=== PATIENT | male | born 1980 | race Caucasian/White ===

== ENCOUNTER → 2020-12-24 12:14 | Outpatient (CLI) | payer OTHER, SELFPAY ==
--- NOTE | 2020-12-24 12:17 | DI.ECHO.S_ITS ---
[facility] +---------+ : : [address] [place] : : : : [id number] : : : : Phone: [phone]+ Echocardiogram Report + + :Name: KATHY ROBLERO Study Date: 12/24/2020 Height: 69 in : :[facility] ReadingLocation: Weight: 207 lb : : Gender: Male BSA: 2.1 m2 : :: 1980 Age: 40 yrs BP: 127/72 mmHg: :Reason For Study: GENERAL EXAM : :Ordering Physician: EVELIN, : :KINDRA Performed By: Daniel Landry : :Referring: KINDRA WATERS : + + Interpretation Summary Borderline asymmetric left ventricular hypertrophy with ejection fraction 60- 65%. No valvular abnormality. Mildly enlarged ascending aorta. Procedure: A two-dimensional transthoracic echocardiogram with color flow and Doppler was performed. The study quality was technically adequate. There is no prior echocardiogram noted for this patient. The patient was in sinus rhythm with heart rates between 57-68 bpm during the exam. Left Ventricle: The left ventricle is normal in size. There is borderline asymmetric left ventricular hypertrophy. The ejection fraction is estimated to be 60-65%. There are no focal wall motion abnormalities. Diastolic parameters suggest probable normal left ventricular diastolic function and normal filling pressures. Right Ventricle: The right ventricle is normal in size and function. Atria: Both atria are normal in size. There is no Doppler evidence for an interatrial shunt. Mitral Valve: The mitral valve is normal in structure and function. There is no mitral regurgitation noted. Aortic Valve: The aortic valve is normal in structure and function. No aortic regurgitation is present. Tricuspid Valve: The tricuspid valve is normal in structure and function. There is trace tricuspid regurgitation. Pulmonary artery pressures cannot be estimated because of the lack of a measurable TR jet velocity but the IVC suggests a CVP of around 3 mmHg. Pulmonic Valve: The pulmonic valve is normal in structure and function. There is mild pulmonic regurgitation. Great Vessels: The aortic root is normal size. The ascending aorta is mildly enlarged. The IVC is of normal diameter and collapses greater than 50% with a sniff. This suggests a low right atrial pressure of 3 mm Hg. Pericardium/ Pleura There is no pericardial effusion. There is no pleural effusion. MMode/2D Measurements & Calculations LVIDd: 5.4 cm LVOT diam: 2.5 cm LVIDs: 3.5 cm Ao root diam: 3.5 cm FS: 34.7 % asc Aorta Diam: 3.8 cm IVSd: 1.2 cm LVPWd: 0.86 cm LV avilez. diameter/BSA (cm/m^2): 2.6 LV sys. diameter/BSA (cm/m^2): 1.7 LA A2 area: 16.7 cm2 RA long axis: 4.6 cm LA A4 area: 17.5 cm2 RA area: 14.2 cm2 LA length (vol): 4.9 cm RA vol: 37.4 ml LA vol: 50.2 ml RA : 17.9 ml/m2 LA vol index: 23.9 ml/m2 IVC diam: 2.1 cm TAPSE: 2.2 cm Doppler Measurements & Calculations Ao V2 max: 126.1 cm/sec LVOT Max Abraham: 128.4 cm/sec Ao V2 mean: 90.9 cm/sec LV V1 max P.6 mmHg Ao max P.4 mmHg LV V1 VTI: 24.0 cm Ao mean P.7 mmHg LEEANNE(I,D): 5.2 cm2 Ao V2 VTI: 23.5 cm LEEANNE(V,D): 5.2 cm2 sev ratio: 1.0 LEEANNE indexed to BSA (cm^2/m^2): 2.5 MV E max abraham: 99.1 cm/sec PA pr(Accel): 32.3 mmHg MV A max abraham: 57.0 cm/sec MV E/A: 1.7 Med Peak E' Abraham: 9.9 cm/sec E/E' med: 10.0 Lat Peak E' Abraham: 10.6 cm/sec E/E' lat: 9.3 E/e' average: 9.7 MV dec time: 0.20 sec SV(LVOT): 122.1 ml Electronically signed by: Donovan King on Reading Physician:12/24/2020 03:04 PM
== END ==
PROVIDERS: PCP Physician Assistant; Referring Provider Physician Assistant; Visit Provider Physician Assistant
DX: Z00.00 Encounter for general adult medical examination without abnormal findings (principal); I37.1 Nonrheumatic pulmonary valve insufficiency; I77.89 Other specified disorders of arteries and arterioles
CPT/HCPCS: 93306

== ENCOUNTER → 2023-06-06 08:56 | Outpatient (CLI) | payer OTHER, SELFPAY ==
[2023-06-06 10:00] LABS: HEMOLYSIS 59 (0-50)
[2023-06-06 10:05] LABS: Alanine Aminotransferase 43 IU/L (<50); Albumin 4.3 g/dL (3.5-5.0); Albumin Globulin Ratio 1.5 (1.0-2.8); Alkaline Phosphatase 57 U/L (38-126); Aspartate Aminotransferase 43 IU/L (17-59); BUN Creatinine Ratio 18.5 (6-22); Bilirubin Total 1.2 mg/dL (0.2-1.3); Blood Urea Nitrogen 15 mg/dL (9-20); Calcium 9.3 mg/dL (8.4-10.2); Carbon Dioxide 28 mmol/L (22-32); Chloride 100 mmol/L (98-107); Cholesterol 220 mg/dL (140-199); Estimated Glomerular Filt Rate > 60 mL/min (>60); Globulin 2.9 g/dL (1.7-4.1); Glucose 94 mg/dL (70-100); HDL Cholesterol 39 mg/dL (40-60); LDL Cholesterol Calculated 157 mg/dL (<100); Potassium 4.4 mmol/L (3.4-5.1); Sodium 136 mmol/L (137-145); Total Protein 7.2 g/dL (6.3-8.2); Triglycerides 119 mg/dL (35-150)
[2023-06-06 10:37] LABS: Prostate Specific Antigen Scrn 1.14 ng/mL (0.1-4.0)
[2023-06-06 10:57] LABS: High Sensitivity CRP - Cardiac > 15.0 mg/L (1.0-3.0)
[2023-06-06 10:58] LABS: C-Reactive Protein Quant 2.6 mg/dL (<1.0)
[2023-06-06 14:53] LABS: Creatinine Urine Random 106.2 mg/dL
[2023-06-06 15:09] LABS: Microalbumin Urine Random < 0.6 mg/dL (0-1.6)
== END ==
PROVIDERS: PCP Family Medicine; Referring Provider Family Medicine; Visit Provider Family Medicine
DX: I10 Essential (primary) hypertension (principal); E78.5 Hyperlipidemia, unspecified; E88.810 Metabolic syndrome; E66.9 Obesity, unspecified; Z12.5 Encounter for screening for malignant neoplasm of prostate
CPT/HCPCS: 36415; 80053; 80061; 82043; 82570; 83525; 86140; G0103

== ENCOUNTER 2023-09-04 07:31 | Day surgery (SDC) | payer OTHER, SELFPAY ==
[2023-09-04] VITALS (7 sets, daily range): BP systolic 85–119; BP diastolic 45–76; PULSE 54–69; RESP 11–20; TEMP 35.8–36.2; O2SAT 94–98
--- NOTE | 2023-09-04 | PATH_ITS ---
[facility] Accession Number: [id number] No. of containers..02 Tissue . 01 Material submitted: . PART A: colon - DESCENIDNG POLYP PART B: colon - RECTAL POLYP . 01 Diagnosis: A. DESCENDING COLON POLYP, BIOPSY: Colonic mucosa with benign lymphoid aggregate. No dysplasia or neoplasia identified. . B. RECTAL POLYP, BIOPSY: Tubular adenoma. [facility] 09/08/2023 1305 Local . 01 Electronically signed: . Rosa M Amos MD, Pathologist NPI- [id number] . 01 Gross description: . Part A: DESCENIDNG POLYP: Received in formalin is 1 fragment(s) of lewis, soft tissue measuring 0.2 x 0.2 x 0.1 cm submitted entirely in 1 cassette(s) Part B: RECTAL POLYP: Received in formalin is 2 fragment(s) of lewis, soft tissue measuring 0.2 x 0.1 x 0.1 cm to 0.1 x 0.1 x 0.1 cm submitted entirely in 1 cassette(s) /[facility] 09/06/2023 0010 Local . 01 Pathologist provided ICD-10: D12.8, K63.89 . 01 CPT . 204357, 175697 Specimen Comment: A courtesy copy of this report has been sent to [phone] Performed at: 01 [facility] [address] [place] [address], [place], [place] [id number] MD Steven Isaac MD Phone: [phone]
--- NOTE | 2023-09-04 08:25 | P.HP_ITS ---
History of Present Illness History of Present Illness Date Patient Seen: 09/04/23 Time Patient Seen: 08:25 Chief complaint: Screening Colonoscopy Narrative: Colonoscopy will be his 1st. Here for colon cancer screening. No symptoms or family history of concern [facility] Medical History Fracture Chicken pox (~1982) Right bundle branch block (~2018) Surgical History Anesthesia History of surgery (~1996) Family History Mother Hypertension Hyperlipidemia Sister Cancer Grandfather Diabetes mellitus Grandmother History of heart disease Grandfather Cancer History of heart disease Grandmother History of heart disease Social History Smoking Status: Never smoker alcohol intake: current Meds Home Medications and Allergies Home Medications Medication Instructions Recorded Confirmed Type lisinopril 20 mg tablet 20 mg PO DAILY #90 tabs 04/29/23 09/04/23 Rx sodium sul 1.479 gram-potas ch See Rx Instructions PO PER PKG DIR 06/10/23 06/10/23 Rx 0.188 gram-magnes sul 0.225 gram #12 tabs tablet (Sutab) Allergies Allergy/AdvReac Type Severity Reaction Status Date / Time No Known Allergies Allergy Verified 04/29/23 14:26 Review of Systems Review of Systems ROS: Yes All systems reviewed with the patient and are negative except as otherwise documented Exam Vital Signs (past 8 hours): - 09/04/23 07:44 Temperature 96.4 F L Pulse Rate 64 Respiratory Rate 16 Blood Pressure 119/76 Pulse Oximetry 98 Oxygen Delivery Method Room Air Oxygen Delivery Method Room Air Const General: cooperative, healthy appearing and comfortable Nutritional Appearance: average body habitus HENMT Head: normal to inspection, normocephalic and atraumatic Eyes General: appearance normal, both eyes and all related structures Neck Neck: trachea midline and No JVD Chest Chest: normal inspection of the chest Resp Effort & Inspection: normal respiratory effort and able to speak in complete sentences Cardio Rate: regular rate Rhythm: regular rhythm GI Inspection: normal to inspection and no abdominal wall ecchymosis Palpation: soft Skin General: elasticity normal and turgor normal Neuro General: patient alert, patient awake and patient oriented x3 Extrem General: normal to inspection Psych Appearance: grossly normal Mental Status: mental status grossly normal Judgment: judgment good Assessment & Plan Assessment & Plan narrative: Colon cancer screening with colonoscopy and anesthesia Time Spent With Patient Time with patient: less than 30 minutes
--- NOTE | 2023-09-04 08:29 | PM.OP.COLON ---
Operative Date/Time/Diagnoses Date of procedure: 09/04/23 Time of procedure: 08:30 Pre-op diagnosis: colon cancer screening Post-op diagnosis: same Procedure & Clinicians Study performed: Colonoscopy with cold forceps polypectomy under anesthesia Same procedure as scheduled: Yes Indications: Colon cancer screening Surgeon: Medina Bashir Procedure Notes Procedure in detail: Preop diagnosis: Colon cancer screening Postop diagnosis: Same Operative procedure: Colonoscopy with cold forceps polypectomy Surgeon: Nivia Bashir MD Anesthetic: Mac Findings: 2 3 mm polyps 1 of the descending colon, and 1 at the distal rectum. Procedure: Patient placed in a lateral position. Rectal exam performed showing normal tone no masses. Colonoscope was inserted into the rectum and advanced to ileocecal valve with minimal difficulty. Insufflation extraction of the scope including retroflex in the rectum had the above findings. The 2 polyps were taken using cold forceps for polypectomy and sent for permanent pathology Impression: Polyps identified, await pathology to determine frequency of screening. Plan: As above wait for pathology to determine frequency of screening Findings: polyp(s) (Two 3 mm polyps 1 in the descending, 1 of the distal rectum) Specimen(s): other (As above) Complications: none Post-procedure Recommendations: Colonoscopy in 5 years Follow up: as needed Disposition: PACU
== END 2023-09-04 09:40 | disposition home or self-care (01) ==
PROVIDERS: PCP Family Medicine; Referring Provider Surgery; Visit Provider Surgery
PROC: 0DJD8ZZ Inspection of Lower Intestinal Tract, Via Natural or Artificial Opening Endoscopic (ICD-10-PCS; CPT 45378; principal; 2023-09-04 08:15)
DX: Z12.11 Encounter for screening for malignant neoplasm of colon (principal); D12.8 Benign neoplasm of rectum; K63.5 Polyp of colon
CPT/HCPCS: 45380; J2704

== ENCOUNTER → 2024-04-30 09:00 | Outpatient (CLI) | payer OTHER, SELFPAY ==
[2024-04-30 09:39] LABS: Hematocrit 45.3 % (41-53); Hemoglobin 15.3 g/dL (13.5-17.5); Mean Corpuscular HGB Conc 33.8 % (30-36); Mean Corpuscular Hemoglobin 30.7 PG (26-34); Mean Corpuscular Volume 90.6 fL (80-100); Platelet Count 166 X10^3/uL (150-400); Red Cell Distribution Width 13.3 % (11.6-14.8); White Blood Cell Count 4.7 X10^3/uL (4.5-11.0)
[2024-04-30 10:00] LABS: Alanine Aminotransferase 25 IU/L (<50); Albumin 4.2 g/dL (3.5-5.0); Albumin Globulin Ratio 1.9 (1.0-2.8); Alkaline Phosphatase 45 U/L (38-126); Aspartate Aminotransferase 35 IU/L (17-59); BUN Creatinine Ratio 19.4 (6-22); Bilirubin Total 1.1 mg/dL (0.2-1.3); Blood Urea Nitrogen 21 mg/dL (9-20); Calcium 9.5 mg/dL (8.4-10.2); Carbon Dioxide 29 mmol/L (22-32); Chloride 103 mmol/L (98-107); Estimated Glomerular Filt Rate > 60 mL/min (>60); Globulin 2.2 g/dL (1.7-4.1); Glucose 95 mg/dL (70-100); HEMOLYSIS < 15 (0-50); Potassium 4.9 mmol/L (3.4-5.1); Sodium 136 mmol/L (137-145); Total Protein 6.4 g/dL (6.3-8.2)
[2024-05-02 12:18] LABS: Cholesterol 201 mg/dL (140-199); HDL Cholesterol 35 mg/dL (40-60); LDL Cholesterol Calculated 152 mg/dL (<100); Triglycerides 71 mg/dL (35-150)
[2024-05-02 12:23] LABS: High Sensitivity CRP - Cardiac 0.6 mg/L (1.0-3.0)
[2024-05-02 12:48] LABS: Prostate Specific Antigen Scrn 0.872 ng/mL (0.1-4.0)
== END ==
PROVIDERS: PCP Family Medicine; Referring Provider Family Medicine; Visit Provider Family Medicine
DX: Z12.5 Encounter for screening for malignant neoplasm of prostate (principal); I10 Essential (primary) hypertension; E88.810 Metabolic syndrome; E66.9 Obesity, unspecified; Z79.899 Other long term (current) drug therapy; E78.5 Hyperlipidemia, unspecified; R79.82 Elevated C-reactive protein (CRP)
CPT/HCPCS: 36415; 80053; 80061; 85027; 86140; G0103